=== PATIENT | female | born 2000 ===

== ENCOUNTER 2019-02-01 20:05 | Emergency (ER) | payer MEDICAID ==
[2019-02-01 20:25] VITALS: BP 131/82; PULSE 98; RESP 18; TEMP 97.5; O2SAT 99
--- NOTE | 2019-02-01 20:43 | ED PDOC ---
HPI: General Adult Time Seen by Provider: 02/01/19 20:26 Chief Complaint (Nursing): Anxiety Chief Complaint (Provider): panic attack History Per: Patient (18 y/o female presents with panic attacks and feelings of hopelessness today. Patient is 8 months. Has also first child age 2. Denies any SI/HI) Past Medical History Reviewed: Historical Data, Nursing Documentation, Vital Signs Vital Signs: Last Vital Signs Temp 97.5 F L 02/01/19 20:18 Pulse 98 H 02/01/19 20:18 Resp 18 02/01/19 20:18 BP 131/82 02/01/19 20:18 Pulse Ox 99 02/01/19 20:18 Primary Care Provider: FAMILY PROVIDER,NO - Surgical History Surgical History: Appendectomy - Family History Family History: States: No Known Family Hx - Allergies Allergies/Adverse Reactions: Allergies Allergy/AdvReac Type Severity Reaction Status Date / Time No Known Allergies Allergy Verified 02/01/19 20:19 Review of Systems ROS Statement: Except As Marked, All Systems Reviewed And Found Negative Physical Exam - Reviewed Nursing Documentation Reviewed: Yes Vital Signs Reviewed: Yes - Physical Exam Appears: Positive for: Well, Non-toxic, No Acute Distress Head Exam: Positive for: ATRAUMATIC, NORMAL INSPECTION, NORMOCEPHALIC Skin: Positive for: Normal Color, Warm, DRY Eye Exam: Positive for: EOMI, Normal appearance, PERRL ENT: Positive for: Normal ENT Inspection Neck: Positive for: Normal, Painless ROM Cardiovascular/Chest: Positive for: Regular Rate, Rhythm Respiratory: Positive for: CNT, Normal Breath Sounds Gastrointestinal/Abdominal: Positive for: Normal Exam, Soft Back: Positive for: Normal Inspection Extremity: Positive for: Normal ROM Neurological/Psych: Positive for: Awake, Alert, Normal Tone - ECG O2 Sat by Pulse Oximetry: 99 - Progress ED Course And Treament: SEEN BY CRISIS DIAGNOSIS ANXIETY D/W HOME AFTER DISCUSSION WITH DR. CALDWELL Disposition - Clinical Impression Clinical Impression: Anxiety - Patient ED Disposition Is Patient to be Admitted: No - Disposition Disposition: Routine/Home Disposition Time: 21:50 Condition: FAIR Instructions: Anxiety, Adult (DC)
== END 2019-02-01 22:04 | disposition home or self-care (01) ==
LOC: H.ER 20:05
DX: F41.0 Panic disorder [episodic paroxysmal anxiety] (principal)